=== PATIENT | female | born 1985 | race Caucasian/White ===

== ENCOUNTER → 2017-02-08 | Outpatient (REF) | LOC: WSOH 16:02 | DX: Z02.89 Encounter for other administrative examinations (principal) ==

== ENCOUNTER → 2019-09-23 | Outpatient (CLI) | payer BC | LOC: COL.LAB 15:40 | DX: O28.8 Other abnormal findings on antenatal screening of mother (principal); R76.8 Other specified abnormal immunological findings in serum ==

== ENCOUNTER 2020-04-23 14:02 | Inpatient (IN) | payer BC ==
[2020-04-23] VITALS (12 sets, daily range): BP systolic 121–159; BP diastolic 61–80; PULSE 66–104; TEMP 97.8–99
[~2020-04-23] VITALS: Ht 177.8 cm; Wt 97.7 kg
--- NOTE | 2020-04-23 14:08 | NUR ---
1408-G1 39[address] Eric's ambulatory to LR 3 with complaints of contractions that started yesterday as cramps and have continued to progress throughout the night and day in strength and frequency. Reports good movement, denies LOF or VB. Assisted into gown and placed on EFM. Patient VSS, SVE -2 with bloody show. Assessment complete. updated on patients arrival. Orders to admit patient and may have an epidural if desired recieved. IV to left forearm by TAYLOR Kwong. Blood collected and sent to lab. 1443-Patient off EFM after reactive strip obtained to ambulate in room. 1530-Patient placed back on EFM, VSS, Reactive FHR reactive, toco tracing contractions every 2-4 min and patient reports increasing strength. Swaying with partner at bedside. 1553-Off EFM to ambulate in room.
[2020-04-23] MEDS ORDERED: ZYRTEC 10MG10 MG PO (14:15)
[2020-04-23] MEDS ORDERED: PRENATAL VITAMI1 TA3 PO (14:16)
[2020-04-23 15:04] LABS: BASO % 0.1 % (0.0-2.0); EOS % 0.1 % (0-4.0); GRAN # 14.1 (1.4-6.5); HEMATOCRIT 42.6 % (37.0-47.0); LYMPH # 1.2 (1.2-3.4); LYMPH % 7.3 % (20.0-51.0); MEAN CELL VOLUME 88 fl (80.0-100.0); MEAN CORPUSCULAR HEMOGLOBIN 31 pg (27.0-31.0); MEAN CORPUSCULAR HGB CONC 35 g/dl (33.0-37.0); MEAN PLATELET VOLUME 9.9 fl (7.4-10.4); MONO # 0.7 (0.1-0.6); MONO % 4.6 % (1.7-9.3); PLATELET COUNT 192 K/mm3 (130-400); RED BLOOD COUNT 4.85 M/mm3 (4.10-5.30); REDCELL DISTRIBUTION WIDTH-CV 12.9 % (11.5-14.5)
--- NOTE | 2020-04-23 17:46 | NUR ---
174-Patient sitting up on bedside, breathing through contractions. Difficulty tracing FHR due to maternal positioning and coping measures. RN adjusts EFM. 1800-Dr. Camp to room. Discusses plan of care with patient. EFM adjusted by this RN. SVE by MD 8100/0, moderate amount of bloody show. Patient declines AROM at this time. MD remains on unit. 1819-Bedside shift report given to ErynRN
--- NOTE | 2020-04-23 18:45 | NUR ---
Pt reports SROM, small amount noted on towel. SVE for station and to check BOW. No BOW felt, presenting part 0 station. Pt and working well breathing with contractions. Dr Camp at L&D desk.
--- NOTE | 2020-04-23 19:30 | NUR ---
Pt focussed with breathing. attentive and involved, working well together.
--- NOTE | 2020-04-23 19:50 | NUR ---
SVE with L ant rim. pt to L side with R leg in stirrup. Pt reports increased rectal pressure with 1st contraction on L side, no perineal or rectal bulging noted. Encouragement and coaching provided.
--- NOTE | 2020-04-23 20:08 | NUR ---
SVE by Dr Camp, Ant rim. Dr Camp discusses plan of care with pt that 'rim reduces easily and that pt could push while he reduces and keeps cervical rim from sliding back" pt and spouse agree. Pt set up for delivery. [address] Camp.
--- NOTE | 2020-04-23 20:28 | NUR ---
Placenta delivers spont and intact. 30u Pitocin in 500cc LR IV started at bolus rate.
--- NOTE | 2020-04-23 20:54 | NUR ---
Perineal repair complete, pericare performed, ice pack to perineum, bed together.
--- NOTE | 2020-04-23 23:00 | NUR ---
IV to INT. Up to bathroom with steady gait. unable to void, passess several small clots, performs own pericare. Becomes lightheaded upon standing, stating "my ears are ringing" Back to bed, wool washcloth placed at back of neck, takes several drinks of ice water. Pivot transfer to wheelchair and transferred to room. Pt instructed not to get of bed without staff assistance. Pt and spouse verbalize understanding.
[2020-04-24 02:00] VITALS: BP 137/86; PULSE 100; TEMP 98.6
[2020-04-24 05:15] VITALS: BP 133/80; PULSE 89
[2020-04-24 07:23] LABS: HEMATOCRIT 35.7 % (37.0-47.0); HEMOGLOBIN 12.5 g/dl (12.5-16.0)
[2020-04-24 08:50] VITALS: BP 143/82; PULSE 85; TEMP 98
--- NOTE | 2020-04-24 09:12 | NUR ---
Initial visit; Parents thanked Stress Engineer for offering congratulations and God's blessings for the of their daughter.
[2020-04-24 16:12] VITALS: BP 124/85; PULSE 68; TEMP 98.1
[2020-04-24 19:35] VITALS: BP 131/79; PULSE 82; TEMP 97.6
[2020-04-25 02:30] VITALS: BP 128/70; PULSE 70; TEMP 98.2
[2020-04-25] MEDS ORDERED: MOTRIN 600600 MG/TAB PO (08:17)
[2020-04-25 08:30] VITALS: BP 121/79; PULSE 84; TEMP 98
--- NOTE | 2020-04-25 11:22 | NUR ---
1100 DISCHARGE INSTRUCTIONS REVIEWED WITH PATIENT AND SPOUSE. BOTH VERBALIZED UNDERSTANDING. 1110 ALL PERSONAL ITEMS GATHERED FROM PATIENT ROOM. PATIENT LEFT AMBULATORY AND IN NO APPARENT DISTRESS AND ACCOMPANIED BY THIS RN.
== END 2020-04-25 11:10 | disposition home or self-care (01) | DRG 807 ==
LOC: LDRO 14:02 → OB 14:10 → LDR 14:10 → OB 23:15
PROVIDERS: Obstetrics & Gynecology; ADMIT Obstetrics & Gynecology
PROC: 10E0XZZ Delivery of Products of Conception, External Approach (ICD-10-PCS; principal; 2020-04-23)
PROC: 0KQM0ZZ Repair Perineum Muscle, Open Approach (ICD-10-PCS; 2020-04-23)
DX: O70.1 Second degree perineal laceration during delivery (principal); Z37.0 Single live birth; Z3A.39 39 weeks gestation of pregnancy
CPT/HCPCS: J2590; J7120

== ENCOUNTER → 2022-08-03 | Outpatient (CLI) | payer BC ==
[~2022-08-03] MED LIST: MOTRIN 600600 MG/TAB PO; PRENATAL VITAMI1 TA3 PO; ZYRTEC 10MG10 MG PO
== END ==
LOC: COL.CARD 10:15
DX: R00.2 Palpitations (principal)

== ENCOUNTER 2022-11-16 04:07 | Inpatient (IN) | payer BC ==
[2022-11-16] VITALS (13 sets, daily range): BP systolic 116–143; BP diastolic 59–82; PULSE 56–79; TEMP 97.8–98.8
[~2022-11-16] VITALS: Ht 177.8 cm; Wt 100.0 kg
--- NOTE | 2022-11-16 04:15 | NUR ---
PT TO UNIT AMBULATORY WITH SPOUSE WITH COMPLAINTS OF CTX THAT BEGAN AT 0400 YESTERDAY AND HAVE GOTTEN MORE INTENSE SINCE APPROXIMATELY 1999 THIS EVENING. PT ORIENTED TO ROOM, CHANGED INTO GOWN. DENIES LOF OR VAGINAL BLEEDING. EFM X2 APPLIED, VS OBTAINED, SVE PERFORMED.
[2022-11-16 05:23] LABS: BASO % 0.2 % (0.0-2.0); EOS % 0.2 % (0.0-4.0); GRAN # 10.6 K/mm3 (1.4-6.5); GRAN % 78.7 % (42.2-75.2); HEMATOCRIT 42.9 % (37.0-47.0); HEMOGLOBIN 14.9 g/dl (12.5-16.0); LYMPH # 1.8 K/mm3 (1.2-3.4); LYMPH % 13.1 % (20.0-51.0); MEAN CELL VOLUME 88 fl (80.0-100.0); MEAN CORPUSCULAR HEMOGLOBIN 31 pg (27-31); MEAN CORPUSCULAR HGB CONC 35 g/dl (33.0-37.0); MEAN PLATELET VOLUME 10.2 fl (7.4-10.4); MONO # 0.9 K/mm3 (0.1-0.6); MONO % 6.9 % (1.7-9.3); PLATELET COUNT 173 K/mm3 (130-400); RED BLOOD COUNT 4.88 M/mm3 (4.10-5.30); REDCELL DISTRIBUTION WIDTH-CV 13.2 % (11.5-14.5)
--- NOTE | 2022-11-16 06:41 | NUR ---
0549- DR. LOPEZ NOTIFIED OF SVE OF 8CM, PT FEELING THE URGE TO PUSH WITH CTX. WILL COME TO HOSPITAL NOW FOR IMPENDING DELIVERY. 0612- SROM, CLEAR FLUID, PT INVOLUNTARILY PUSHING WITH CTXs. Salvador MCCAULEY, TAYLOR IN ROOM. 612- DR. LOPEZ IN ROOM FOR DELIVERY. 18- SVE OF COMPLETE PER DR. LOPEZ. PT BEGINS PUSHING WITH DR. LOPEZ. 624- SPONTANEOUS VAGINAL DELIVERY OF VIABLE GIRL WITH LOSE NUCHAL CORD. CORD CLAMPED BY DR. LOPEZ AND CUT BY FOB. BABY TO MOTHER'S CHEST, DRIED AND STIMULATED, BABY CARES ASSUMED BY Mani SYKES RN. 640- SPONTANEOUS DELIVERY OF INTACT PLACENTA. PITOCIN STARTED AT 333ML/HR PER PROTOCOL. Salvador MCCAULEY RN ASSUMES PT CARE.
[2022-11-16] MEDS ORDERED: PRENATAL TABLET PO (06:42)
[2022-11-17 08:15] VITALS: BP 129/73; PULSE 92; TEMP 98.3
[2022-11-17] MEDS ORDERED: PERCOCET 325 MG1 TA2 PO (12:03)
[2022-11-17] MEDS ORDERED: MOTRIN 800800 MG/TAB PO (12:03)
== END 2022-11-17 13:40 | disposition home or self-care (01) | DRG 807 ==
LOC: LDRO 04:07 → LDR 04:35 → OB 04:35
PROVIDERS: ADMIT Obstetrics & Gynecology
PROC: 10E0XZZ Delivery of Products of Conception, External Approach (ICD-10-PCS; principal; 2022-11-16)
PROC: 0UQMXZZ Repair Vulva, External Approach (ICD-10-PCS; 2022-11-16)
DX: O48.0 Post-term pregnancy (principal); Z37.0 Single live birth; O69.81X0 Labor and delivery complicated by cord around neck, without compression, not applicable or unspecified; O70.0 First degree perineal laceration during delivery; Z3A.41 41 weeks gestation of pregnancy; Z23 Encounter for immunization
CPT/HCPCS: J2210; J2590; J7120